=== PATIENT | male | born 1990 | race American Indian/Alaskan Native ===

== ENCOUNTER 2018-05-24 17:05 | Emergency (ER) | payer OTHER ==
[2018-05-24 17:34] VITALS: BP 131/77
[2018-05-24] MEDS ORDERED: BOOSTRIX IM ONE (18:57)
[2018-05-24] MEDS ORDERED: IBUPROFEN PO ONE (18:57)
--- NOTE | 2018-05-24 19:00 | Emergency Department Report ---
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 Patient is uninsured. Up-to-date on his tetanus vaccination. Patient reports no past medical history takes no medications on a daily basis and has no known drug allergies. ED Review of Systems ROS: Stated complaint: HEAD INJURY/PAIN Other details as noted in HPI Comment: All other systems reviewed and negative ED Past Medical Hx - Past Medical History Previous Medical History?: No - Surgical History Past Surgical History?: No - Social History Smoking Status: Never Smoker Substance Use Type: None Laceration Physical Exam - Exam General: Vital signs noted. No distress. Alert and acting appropriately. Wound Length (cm): 2 Laceration Location: Other (face chin) Laceration Exam: No Foreign Body, No Exposed Tendon, Vessel, or Nerve, No Tendon Injury, No Normal Distal CMS ED Course Vital Signs 05/24/18 17:32 Temperature 98.5 F Pulse Rate 63 Respiratory 18 Rate Blood Pressure 131/77 O2 Sat by Pulse 99 Oximetry - Laceration /Wound Repair Face Wound Location: face (chin) Wound Length (cm): 2 Wound's Depth, Shape: into muscle Wound Explored: no foreign body removed Irrigated w/ Saline (ccs): 60 Betadine Prep?: Yes Anesthesia: 1% Lidocaine Volume Anesthetic (ccs): 5 Wound Debrided: minimal Wound Repaired With: sutures Suture Size/Type: 3:0, proline Number of Sutures: 3 Layer Closure?: No Progress: Patient tolerated well ED Medical Decision Making - Medical Decision Making Patient has been evaluated by this provider in [facility]. Patient will be given ibuprofen for pain management The patient's laceration will be repaired by this provider with sutures. Patient is to follow-up with his primary care provider or health clinic at the [facility]. Critical care attestation.: If time is entered above; I have spent that time in minutes in the direct care of this critically ill patient, excluding procedure time. ED Disposition Clinical Impression: Laceration of chin Qualifiers: Encounter type: initial encounter Qualified Code(s): S01.81XA - Laceration without foreign body of other part of head, initial encounter Disposition: DC-01 TO HOME OR SELFCARE Is pt being admited?: No Does the pt Need Aspirin: No Condition: Stable Instructions: Laceration (ED), Suture Care (ED) Additional Instructions: Keep wound clean and dry return to the medical unit to have sutures removed in 5-7 days. [id number] pain medicine such as Tylenol or Motrin pain management.
== END 2018-05-24 20:40 | disposition home or self-care (01) ==
LOC: ED 17:05 → EEVIPCON 17:05 → ED 20:40
DX: S01.81XA Laceration without foreign body of other part of head, initial encounter (principal); X58.XXXA Exposure to other specified factors, initial encounter; Y93.67 Activity, basketball; Y92.89 Other specified places as the place of occurrence of the external cause; Y99.8 Other external cause status
CPT/HCPCS: 90471; 90715